=== PATIENT | female | born 1985 | race Caucasian/White ===

== ENCOUNTER 2023-03-27 10:23 | Emergency (ER) | payer OTHER, SELFPAY ==
[2023-03-27 10:41] VITALS: BP 129/65; PULSE 92; RESP 21; TEMP 36.9; O2SAT 98; BMI 21.0
[2023-03-27 10:43] VITALS: BP 127/85; PULSE 93; O2SAT 100
[2023-03-27 11:00] LABS: Appearance Urine Cloudy; Color Urine Dark Yellow; Glucose Urine UA Negative (Negative); Leukocyte Esterase Urine Negative (Negative); Nitrite Urine Negative (Negative); PH 5.5 (5.0-9.0); Specific Gravity - Urine >= 1.030 (1.005-1.025); UMIC TRIGGER UACC YES; Urine Blood Negative (Negative); Urine Ketones Trace mg/dL (Negative); Urine Protein 30 (1+) mg/dL (Neg-Trace)
[2023-03-27 11:03] LABS: Bacteria Urine 1+ (None Seen); RBC Urine 0-2 /HPF (0-2); WBC Urine 0-5 /HPF (0-5)
[2023-03-27 11:11] LABS: Amphetamine Screen Urine Not Detected (Not Detect); Barbiturates, Urine Not Detected (Not Detect); Benzodiazepines Screen Urine POSITIVE (Not Detect); Cannabinoid Screen Urine Not Detected (Not Detect); Cocaine Screen Urine POSITIVE (Not Detect); Fentanyl, urine POSITIVE (Not Detect); Opiate Screen Urine Not Detected (Not Detect); Phencyclidine Screen Urine Not Detected (Not Detect)
--- OUTSIDE RECORDS SUMMARY | 2023-03-27 11:28 | XMS_ITS | Continuity of Care Document ---
Author Name Unknown Organization [facility] ter Address [address] [place] [address]- Care Team Providers Care Delivery Engineer Name Role Phone Shivani Skaggs MD Primary Care Physician Encounter [facility] [place] [facility] R [id number] Date(s): 06/04/21 - 06/04/[address] [address]- Discharge Disposition: A-D/C Walkout Attending Physician: Not on Staff, Attending MD Admitting Physician: Not on Staff, Admitting MD Referring Physician: Not on Staff, Referring MD Allergies, Adverse Reactions, Alerts Substance Reaction Severity Status penicillins Active Keflex Rash Active
--- OUTSIDE RECORDS SUMMARY | 2023-03-27 11:28 | XMS_ITS | Continuity of Care Document ---
Author Name Unknown Organization [facility] ter Address [address] [place] [address]- Care Team Providers Care Riveter Hand Name Role Phone Shivani Skaggs MD Primary Care Physician Encounter [facility] [place] Date(s): 01/18/23 - 01/19/[address] [address]- Encounter Diagnosis Cocaine use(Final) - 01/18/23 Agitation(Final) - 01/18/23 Discharge Disposition: A-D/C Home Attending Physician: Graham Mckeon MD Admitting Physician: Graham Mckeon MD Referring Physician: Not on Staff, Referring MD Allergies, Adverse Reactions, Alerts Substance Reaction Severity Status penicillins Active Keflex Rash Active Immunizations Given and Recorded Vaccine Date Status Refusal Reason Measles/Mumps/Rubella Virus Vaccine 02/01/18 Recor ded Medications nicotine 2 mg oral transmucosal lozenge 0 Refills, Maintenance, 02/23/22 16:59:00 EDT, Partial fill upon patient request if the prescription is for a schedule II opioid drug. Start Date: 02/23/22 Status: Ordered Results Radiology Reports * Exam Date Time Procedure Performing Provider Status 01/18/23 3:49 PM Chest Portable Yazmin Sanchez; Sunny (V erified) Notes: (Chest Portable) Reason For Exam: Shortness of Breath RESULT: Chest Portable Chest Portable INDICATION: Shortness of breath COMPARISON: None. FINDINGS: LINES AND TUBES: None. LUNGS AND PLEURA: No evidence of confluent airspace opacity, lung consolidation or pulmonary vascular redistribution. Costophrenic sulci are maintained. No evidence of pneumothorax. HEART, MEDIASTINUM AND VENESSA: Cardiomediastinal silhouette is within normal limits in size. BONES AND SOFT TISSUES: Included skeleton is unremarkable as visualized IMPRESSION: No evidence of active cardiopulmonary process WSN: [id number] Ordering Physician: Pepper Kelsey By: Elias Gibbs Jr, MD Dictated Date/Time: 01/18/23 3:57 pm Reviewed By: Elias Gibbs Jr, MD Signed By: Elias Gibbs Jr, MD Signed Date/Time: 01/18/23 3:57 pm Transcribed By: CARLOS A Transcribed Date/Time: 01/18/23 3:56 pm Vital Signs Most recent to oldest [Reference Range]: 1 2 3 Oxygen Saturation [94-100 %] 100 % (01/19/23 1:21 PM) 100 % (01/19/23 6:01 AM) 100 % (01/19/23 5:30 AM) Pulse Rate [55-90 bpm] 79 bpm (01/19/23 1:21 PM) 87 bpm (01/19/23 6:01 AM) 77 bpm (01/19/23 5:30 AM) Blood Pressure [90-138/55-84 mm Hg] 124/76mm Hg (01/19/23 1:21 PM) 123/89mm Hg (01/19/23 6:01 AM) 124/85mm Hg (01/19/23 5:30 AM) Respiratory Rate [16-30 br/min] 16 br/min (01/19/23 1:21 PM) 15 br/min *L* (01/19/23 6:01 AM) 15 br/min *L* (01/19/23 3:44 AM) Temperature [96.8-100.4 DegF] 98.7 DegF (01/19/23 3:44 AM) 97.5 DegF (01/18/23 2:56 PM) Mode of Delivery (Oxygen) Room air (01/19/23 1:21 PM) Room air (01/19/23 6:01 AM) Room air (01/19/23 5:30 AM) Blood pressure sites Arm, left (01/19/23 1:21 PM) Arm, left (01/19/23 6:01 AM) Arm, left (01/19/23 5:30 AM) Temperature Route Axillary (01/19/23 3:44 AM) Axillary (01/18/23 2:56 PM) EKG study * Event Display: EKG Authored Date: Note * Luis Leigh DO: PERFORM Event Display: Patient Education Leaflets Authored Date: [id number] Cocaine and Crack Abuse ?? [id number] Cocaine and Crack Abuse Cocaine is typically snorted or injected into a vein. It can also be rubbed onto the gums.??Crack is made from cocaine. It can be smoked for a stronger effect. Cocaine causes a very powerful mental and physical dependence.?? Once you have a dependence, you'll do just about anything to get the drug and have the feeling it gives you. This can increase your risk for: ??? Overdose that may lead to ??? Loss of your job, your home, or your family ??? Accidental injuries to yourself or others while you are under the influence of the drug (in a car or at home) ??? Arrest, conviction, and care home sentence for possession of an illegal substance or for driving underthe influence Medically, cocaine can affect every organ in your body.??It can cause: ??? Chest pain, heart rhythm problem (arrhythmia), heart attack, and heart failure ??? Very high blood pressure ??? Severe headache, seizures, loss of consciousness, and stroke ??? Anxiety, psychosis, confusion, paranoia, and hallucinations ??? Nasal damage from snorting ??? Nausea, belly (abdominal) pain, and loss of appetite ??? Chronic bronchitis and shortness of breath from smoking ??? Higherrisk for HIV infection, hepatitis B or C, and heart infection. This is from IV use, risky sexual behavior while high, or both.? Kidney failure Home care These tips will help you care for yourself at home: ??? Admit you have a drug problem. Ask for help from your family and close friends. ??? See a mental health provider or counselor if you have depression or anxiety. ??? Join a self-help group for drug abuse. ??? Stay away from people who abuse drugs themselves or who tempt you to continue abusing the drug. ??? Eat a balanced diet and start a regular exercise program. If you continue to use IV cocaine, lower your risk of getting or spreading infection by: ??? Using only sterile equipment ??? Not reusing or sharing equipment ??? Cleaning your skin before injecting ?? Follow-up care Follow up with your healthcare provider, or as advised. Contact 1 of the resources below for help: ??? Substance Abuse and Mental Health Treatment Administration (SAMHSA) at www.samhsa.gov/find-treatment or 770-480-GFLW ??? [facility] [place] on Drug Abuse (ADRIAN) at www.drugabuse.gov ? National [place] on Alcoholism and Drug Dependence at www.ncadd.org ??? Narcotics Anonymous at www.na.org ?? Call 911 Call 911 if any of these occur: ??? Seizure ??? Hard time breathing or slow, irregular breathing ??? Chest pain ??? Sudden weakness on 1 side of your body or sudden trouble speaking ??? Very drowsy or trouble waking up ??? Fast heart rate ?? When to get medical advice Call your healthcare provider right away if any of the following occur: ??? Agitation, anxiety, or unable to sleep ??? Unintended weight loss. This means more than 10 to 15 pounds over 6 months without dieting. ??? Hallucination, severe depression, or thoughts of harming yourself or another ??? Fever of 100.4??F??(38??C) or higher, or as advised by your provider ??? Redness, pain, or swelling at an injection site ??? Loss of vision or decreased vision ?? Last Reviewed Date: 2022 ?? 4582-4171 [employer]. All rights reserved. This information is not intended as a substitute for professional medical care. Always follow your healthcare professional's instructions. ?? Portable XR Chest Views * BHSPowerscribe , CIS S: TRANSCRIBE Bernie Pickett MD, Elias P: VERIFY Event Display: Result: Authored Date: [id number] Chest Portable INDICATION: Shortness of breath COMPARISON: None. FINDINGS: LINES AND TUBES: None. LUNGS AND PLEURA: No evidence of confluent airspace opacity, lung consolidation or pulmonary vascular redistribution. Costophrenic sulci are maintained. No evidence of pneumothorax. HEART, MEDIASTINUM AND VENESSA: Cardiomediastinal silhouette is within normal limits in size. BONES AND SOFT TISSUES: Included skeleton is unremarkable as visualized IMPRESSION: No evidence of active cardiopulmonary process WSN: [id number] Ordering Physician: Pepper Kelsey Dictated By: Elias Gibbs Jr, MD Dictated Date/Time: 01/18/23 3:57 pm Reviewed By: Elias Gibbs Jr, MD Signed By: Elias Gibbs Jr, MD Signed Date/Time: 01/18/23 3:57 pm Transcribed By: CSJacquelyn Transcribed Date/Time: 01/18/23 3:56 pm Patient Care team information Care Team Personnel Name: Shivani Skaggs MD Position: [facility] Physician - Primary Care Member Role: PCP Address: Address: [address] [place] [address]- Name: *[facility], ED Attending Position: [facility] ED Attendings Patient Name: Lashonda Grant Position: [facility] ED RN W/OE and Tasks Member Role: Patient Care Provider Name: Chata Cronin Position: [facility] ED TA [facility] Member Role: Patient Care Provider Name: Graham Mckeon MD Position: [facility] Resident Member Role: ED Attending Physician Address: Address: [address] [place] [address] [place] [address]- Name: Muriel Steiner Position: [facility] ED TA [facility] Care Team Related Persons Name: MICHAEL BRIONES Address: home [address] [place] [address] Name: [employer] Address: home [address] [place], [place]
--- OUTSIDE RECORDS SUMMARY | 2023-03-27 11:28 | XMS_ITS | Continuity of Care Document ---
Author Name Unknown Organization [facility] Address [address] [place] [address]- Care Team Providers Care Associate Professor Of Art History Name Role Phone Shivani Skaggs MD Primary Care Physician Encounter [facility] [place] Date(s): 01/29/23 - 01/30/[address] [address]- Encounter Diagnosis Stimulant intoxication(Final) - 01/29/23 Agitation(Final) - 01/30/23 Inappropriate behavior(Final) - 01/30/23 Discharge Disposition: A-D/C Home Attending Physician: Vaibhav Sutton MD Admitting Physician: Vaibhav Sutton MD Referring Physician: Not on Staff, Referring [...] opioid drug. Start Date: 02/23/22 Status: Ordered Vital Signs Most recent to oldest [Reference Range]: 1 2 3 Height 167 cm (01/30/23 1:39 PM) 167 cm (01/30/23 11:38 AM) 167 cm (01/29/23 10:07 PM) Weight 57 kg (01/30/23 1:39 PM) 57 kg (01/30/23 11:38 AM) 57 kg (01/29/23 10:07 PM) Oxygen Saturation [94-100 %] 100 % (01/30/23 1:39 PM) 100 % (01/30/23 11:38 AM) 99 % (01/30/23 5:45 AM) Pulse Rate [55-90 bpm] 95 bpm *H* (01/30/23 1:39 PM) 62 bpm (01/30/23 11:38 AM) 78 bpm (01/30/23 5:45 AM) Body Mass Index [18.5-24.99 kg/m2] 20.44 kg/m2 (01/30/23 1:39 PM) 20.44 kg/m2 (01/30/23 11:38 AM) 20.44 kg/m2 (01/29/23 10:05 PM) Blood Pressure [90-138/55-84 mm Hg] 133/103mm Hg (01/30/23 1:39 PM) 120/80mm Hg (01/30/23 11:38 AM) 139/84mm Hg *H* (01/29/23 10:05 PM) Respiratory Rate [16-30 br/min] 18 br/min (01/30/23 1:39 PM) 18 br/min (01/30/23 11:38 AM) 16 br/min (01/30/23 5:45 AM) Temperature [96.8-100.4 DegF] 98 DegF (01/30/23 1:39 PM) 98.5 DegF (01/30/23 11:38 AM) 97.8 DegF (01/29/23 10:05 PM) Mode of Delivery (Oxygen) Room air (01/30/23 1:39 PM) Room air (01/30/23 11:38 AM) Room air (01/30/23 12:46 AM) Blood pressure sites Arm, right (01/30/23 1:39 PM) Arm, right (01/30/23 11:38 AM) Arm, left (01/29/23 10:05 PM) Temperature Route Temporal (01/30/23 1:39 PM) Temporal (01/30/23 11:38 AM) Oral (01/29/23 10:05 PM) Dry Weight 57 kg (01/30/23 1:39 PM) 57 kg (01/30/23 11:38 AM) 57 kg (01/29/23 10:07 PM) Weight Obtained Via Patient/family state d (01/29/23 10:05 PM) Dry Weight Obtained Via Patient/family s tated (01/29/23 10:05 PM) Note * Mari Sutton MDh: PERFORM Event Display: Patient Education Leaflets Authored Date: [id number] Cocaine and Crack Abuse ?? [id number] Cocaine and Crack Abuse Cocaine is typically [...] or at home) ??? Arrest, conviction, and longterm sentence for possession of an illegal substance [...] Health Treatment Administration (SAMHSA) at www.samhsa.gov/find-treatment or 792-921-IDBZ ??? [facility] [place] on Drug Abuse (ADRIAN) at www.drugabuse.gov ? National [place] on Alcoholism and Drug Dependence at www.ncadd.org [...] vision ?? Last Reviewed Date: 2022 ?? 9942-7925 [employer]. All rights reserved. This information is not intended as a substitute for professional medical care. Always follow your healthcare professional's instructions. ?? Patient Care team information Care Team Personnel Name: Shivani Skaggs MD Position: [facility] Physician - Primary Care Member Role: PCP Address: Address: [address] [place] [address]- [place] Name: Emilie Sanchez RN Position: [facility] ED RN W/OE and Tasks Member Role: Patient Care Provider Name: Vaibhav Sutton MD Position: [facility] ED Medicine MD Member Role: Admitting Physician Address: Address: [address] [place] [address]- Care Team Related Persons Name: MICHAEL BRIONES Address: home [address] [place] [address] Name: [employer] Address: home [address] [facility] [place] [address]
--- OUTSIDE RECORDS SUMMARY | 2023-03-27 11:28 | XMS_ITS | Continuity of Care Document ---
Author Name Unknown Organization [facility] ter Address [address] [place] [address]- Care Team Providers Care Manager Customer Service Name Role Phone Shivani Skaggs MD Primary Care Physician [phone] Encounter [facility] [place] Date(s): 05/15/22 - 05/16/[address] [address]- Discharge Disposition: A-D/C Home Attending Physician: Alfonso Syed MD Admitting Physician: Alfonso Syed MD Referring Physician: Not on Staff, Referring MD Allergies, Adverse Reactions, Alerts Substance Reaction Severity Status penicillins Active Keflex Rash Active Medications nicotine 2 mg oral transmucosal lozenge 0 Refills, Maintenance, 02/23/22 16:59:00 EDT, Partial fill upon patient request if the prescription is for a schedule II opioid drug. Start Date: 02/23/22 Status: Ordered Vital Signs Most recent to oldest [Reference Range]: 1 2 3 Oxygen Saturation [94-100 %] 100 % (05/16/22 1:40 PM) 100 % (05/16/22 12:30 PM) 98 % (05/16/22 9:38 AM) Pulse Rate [55-90 bpm] 76 bpm (05/16/22 1:40 PM) 86 bpm (05/16/22 9:38 AM) 77 bpm (05/16/22 6:04 AM) Blood Pressure [90-138/55-84 mm Hg] 112/58mm Hg (05/16/22 1:40 PM) 113/55mm Hg (05/16/22 12:30 PM) 124/77mm Hg (05/16/22 9:38 AM) Respiratory Rate [16-30 br/min] 20 br/min (05/16/22 1:40 PM) 16 br/min (05/16/22 12:30 PM) 18 br/min (05/16/22 9:38 AM) Temperature [96.8-100.4 DegF] 98.8 DegF (05/16/22 12:30 PM) 98.8 DegF (05/16/22 9:38 AM) 98.3 DegF (05/16/22 6:04 AM) Liters per Minute 0 L/min (05/16/22 9:38 AM) 1 L/min (05/16/22 6:04 AM) 1 L/min (05/16/22 4:20 AM) Mode of Delivery (Oxygen) Room air (05/16/22 1:40 PM) Room air (05/16/22 12:30 PM) Room air (05/16/22 9:38 AM) Blood pressure sites Arm, right (05/16/22 12:30 PM) Arm, right (05/16/22 6:04 AM) Arm, right (05/16/22 4:20 AM) Temperature Route Oral (05/16/22 12:30 PM) Axillary (05/16/22 6:04 AM) Care Team Personnel Name: Shivani Skaggs MD Address: [address] [place] [address]
--- OUTSIDE RECORDS SUMMARY | 2023-03-27 11:28 | XMS_ITS | Continuity of Care Document ---
Author Name Unknown Organization [facility] Address [address] [place] [address]- Care Team Providers Care Nurse College Name Role Phone Shivani Skaggs MD Primary Care Physician En[place] [facility] [place](s): 01/30/23 - 01/31/[address] [address]- Encounter Diagnosis Polysubstance abuse(Final) - 01/31/23 Somnolence(Final) - 01/31/23 Depression with suicidal ideation(Final) - 01/31/23 Discharge Disposition: A-D/C Home Attending Physician: Leroy Silva MD Admitting Physician: Leroy Silva MD Referring Physician: Not on Staff, Referring [...] recent to oldest [Reference Range]: 1 2 Height 167 cm (01/30/23 4:48 PM) 167 cm (01/30/23 4:45 PM) Weight 62 kg (01/30/23 4:48 PM) 57 kg (01/30/23 4:45 PM) Oxygen Saturation [94-100 %] 98 % (01/31/23 12:00 AM) 100 % (01/30/23 4:48 PM) Pulse Rate [55-90 bpm] 66 bpm (01/31/23 12:00 AM) 67 bpm (01/30/23 4:48 PM) Body Mass Index [18.5-24.99 kg/m2] 22.23 kg/m2 (01/30/23 4:48 PM) Blood Pressure [90-138/55-84 mm Hg] 95/6 7mm Hg (01/31/23 12:00 AM) 98/60mm Hg (01/30/23 4:48 PM) Respiratory Rate [16-30 br/min] 16 br/mi n (01/31/23 12:00 AM) 16 br/min (01/30/23 4:48 PM) Temperature [96.8-100.4 DegF] 97.0 DegF (01/31/23 12:00 AM) 98.4 DegF (01/30/23 4:48 PM) Mode of Delivery (Oxygen) Room air (01/31/23 12:00 AM) Room air (01/30/23 4:48 PM) Blood pressure sites Arm, right (01/31/23 12:00 AM) Arm, right (01/30/23 4:48 PM) Temperature Route Oral (01/31/23 12:00 AM) Oral (01/30/23 4:48 PM) Dry Weight 57 kg (01/30/23 4:45 PM) Patient Care team information Care Team Personnel Name: Shivani Skaggs MD Position: [facility] Physician - Primary Care Member Role: PCP Address: Address: [address] [place] [address]- Name: Leroy Silva MD Position: [facility] ED Medicine MD Member Role: Admitting Physician Address: Address: [address] [place] [address] [place] [address]- Name: Tamika Leon RN Position: [facility] ED RN W/OE and Tasks Member Role: Patient Care Provider Care Team Related Persons Name: MICHAEL BRIONES Address: [address] [place] [address] Name: [employer] Address: [address] [place] [address]
--- OUTSIDE RECORDS SUMMARY | 2023-03-27 11:28 | XMS_ITS | Continuity of Care Document ---
Author Name Unknown Organization [facility] ter Address [address] [place] [address]- Care Team Providers Care Plate Embosser Name Role Phone Shivani Skaggs MD Primary Care Physician Encounter [facility] Date(s): 03/10/23 - 03/10/[address] [address]- Discharge Disposition: A-D/C Home Attending Physician: Malini Mariscal MD Admitting Physician: Malini Mariscal MD Referring Physician: Not on Staff, Referring [...] 3 Oxygen Saturation [94-100 %] 100 % (03/10/23 7:13 PM) 100 % (03/10/23 3:23 PM) 100 % (03/10/23 1:28 PM) Pulse Rate [55-90 bpm] 62 bpm (03/10/23 7:13 PM) 66 bpm (03/10/23 3:23 PM) 62 bpm (03/10/23 1:28 PM) Blood Pressure [90-138/55-84 mm Hg] 113/67mm Hg (03/10/23 7:13 PM) 121/89mm Hg (03/10/23 3:23 PM) 113/64mm Hg (03/10/23 1:28 PM) Respiratory Rate [16-30 br/min] 18 br/min (03/10/23 7:13 PM) 18 br/min (03/10/23 3:23 PM) 18 br/min (03/10/23 1:28 PM) Mode of Delivery (Oxygen) Room air (03/10/23 7:13 PM) Room air (03/10/23 3:23 PM) Room air (03/10/23 1:28 PM) Blood pressure sites Arm, left (03/10/23 8:52 AM) Arm, left (03/10/23 6:35 AM) Arm, left (03/10/23 5:48 AM) Note * Doug Lamb MD: PERFORM Event Display: Patient Education Leaflets Authored Date: [id number] Cocaine and Crack Abuse ?? [id number] Cocaine and Crack Abuse Cocaine is typically [...] or at home) ??? Arrest, conviction, and shelter sentence for possession of an illegal substance [...] Health Treatment Administration (SAMHSA) at www.samhsa.gov/find-treatment or 838-491-KNIC ??? [facility] [place] on Drug Abuse (ADRIAN) at www.drugabuse.gov ? National [place] on Alcoholism and Drug Dependence at www.ncadd.org [...] vision ?? Last Reviewed Date: 2022 ?? 3799-2831 [employer]. All rights reserved. This information is not intended as a substitute for professional medical care. Always follow your healthcare professional's instructions. ?? Patient Care team information Care Team Personnel Name: Shivani Skaggs MD Position: [facility] Physician - Primary Care Member Role: PCP Address: Address: [address] [place] [address]- [place] Name: Doug Lamb MD Position: [facility] Resident Member Role: ED Resident Address: Address: [address] [place] [address]- Name: Malini Mariscal MD Position: [facility] ED Medicine MD Member Role: Admitting Physician Address: Address: [address] [place] [address]- Name: Malini Sawyer RN Position: [facility] ED RN W/OE and Tasks Member Role: Patient Care Provider Name: Violet Chacon Position: [facility] ED TA [facility] Member Role: Manpower Development Specialist Manager Care Team Related Persons Name: MICHAEL BRIONES Address: [address] [place] [address] Name: [employer] Address: [address] [place] [address]
--- OUTSIDE RECORDS SUMMARY | 2023-03-27 11:28 | XMS_ITS | Continuity of Care Document ---
Author Name Unknown Organization [facility] ter Address [address] [place] [address]- Care Team Providers Care Wood Room Supervisor Name Role Phone Shivani Skaggs MD Primary Care Physician [phone] [place] [facility] [place](s): 04/19/21 - 04/19/[address] [address]- Encounter Diagnosis Cocaine use(Final) - 04/19/21 Discharge Disposition: A-D/C AMA Attending Physician: Therese Monteiro MD Admitting Physician: Therese Monteiro MD Referring Physician: Not on Staff, Referring MD Allergies, Adverse Reactions, Alerts Substance Reaction Severity Status penicillins Active Keflex Rash Active Vital Signs Most recent to oldest [Reference Range]: 1 2 Oxygen Saturation [94-100 %] 99 % (04/19/21 1:15 PM) 100 % (04/19/21 12:39 PM) Pulse Rate [55-90 bpm] 92 bpm *H* (04/19/21 1:15 PM) 100 bpm *H* (04/19/21 12:39 PM) Blood Pressure [90-138/55-84 mm Hg] 157/ 107mm Hg *H* (04/19/21 1:15 PM) Respiratory Rate [16-30 br/min] 22 br/mi n (04/19/21 1:15 PM) Mode of Delivery (Oxygen) Room air (04/19/21 1:15 PM) Room air (04/19/21 12:39 PM)
--- OUTSIDE RECORDS SUMMARY | 2023-03-27 11:28 | XMS_ITS | Continuity of Care Document ---
Author Name Unknown Organization [facility] ter Address [address] [place] [address]- Care Team Providers Care Plate Painter Apprentice Name Role Phone Shivani Skaggs MD Primary Care Physician Encounter [facility] [place] Date(s): 01/04/23 - 01/04/[address] [address]- Discharge Disposition: A-D/C Home Attending Physician: Sherrell Kebede DO Admitting Physician: Sherrell Kebede DO Referring Physician: Not on Staff, Referring MD [...] 1 2 3 Oxygen Saturation [94-100 %] 99 % (01/04/23 8:22 PM) 99 % (01/04/23 4:16 PM) 99 % (01/04/23 7:33 AM) Pulse Rate [55-90 bpm] 91 bpm *H* (01/04/23 8:22 PM) 77 bpm (01/04/23 4:16 PM) 90 bpm (01/04/23 7:33 AM) Blood Pressure [90-138/55-84 mm Hg] 128/61mm Hg (01/04/23 8:22 PM) 128/70mm Hg (01/04/23 4:16 PM) 120/75mm Hg (01/04/23 7:33 AM) Respiratory Rate [16-30 br/min] 18 br/min (01/04/23 8:22 PM) 18 br/min (01/04/23 4:16 PM) 18 br/min (01/04/23 7:33 AM) Temperature [96.8-100.4 DegF] 98.1 DegF (01/04/23 8:22 PM) 98.4 DegF (01/04/23 4:17 AM) Mode of Delivery (Oxygen) Room air (01/04/23 8:22 PM) Room air (01/04/23 4:16 PM) Room air (01/04/23 7:33 AM) Blood pressure sites Arm, left (01/04/23 8:22 PM) Arm, left (01/04/23 4:16 PM) Temperature Route Oral (01/04/23 8:22 PM) Axillary (01/04/23 4:17 AM) Note * Gene Ernandez MD: PERFORM Event Display: Patient Education Leaflets Authored Date: Drug Abuse ?? [id number] Drug Abuse Use and abuse of drugs or medicines may lead to addiction or dependence. You may hear drug abuse oraddiction called substance use disorder (MARIAH). Examples of illegal drugs include amphetamines (alsoknown as speed or crank), methamphetamines (meth), cocaine, heroin, bath salts, and hallucinogens (such as MDMA, ecstasy, PCP, mescaline, and LSD). Xylazine is a sedative and pain reliever approved only for animals. It's not approved or safe for people. It's known by the street name tranq. Xylazine has been found in street drugs, especially heroin and fentanyl. It has been linked to overdoses and . Severe side effects from xylazine include slow heart beat and breathing, low blood pressure, skin sores, and coma. In some states, marijuana is an illegal drug. Medicines include prescription medicines, sedatives, and sleeping pills. Once addiction or dependence happens, you are at greater risk for the problems below. Social and personal problems ??? Craving for the drug and not being able to stop using even though you think you want to stop (psychological addiction) ??? Drug withdrawal symptoms if you stop takingthe drug (physical dependence) ??? Loss of friends and family ??? School or work problems ??? Arrest, conviction, and assisted sentence for possession of an illegal substance or for driving under the infl uence ?? Health problems ??? Stroke, heart attack, heart failure, and kidney failure ??? Accidental injuriesto yourself or others while you are under the influence of a drug (in a car or at home) ??? HIV infection. This is a much greater risk if you use IV drugs. ??? Skin infections ??? Other sexually transmitted infections (STIs), such as herpes, chlamydia, and gonorrhea ??? Severe and fatal infection of the heart valves if you use IV drugs ??? Hepatitis B or C ??? Dementia, mood disorders, persistenthallucinations (particularly with hallucinogens) ??? Dental problems from methamphetamine abuse ??? from overdose ?? Home care The following suggestions can help you care for yourself at home: ??? Admit you have a drug problem. Ask for help from your family and close friends. ??? Seek professional help. This could be one-on-one therapy or counseling. There are also outpatient, inpatient, and residential drug treatment programs. ??? Join a self-help group for drug abuse. ??? Stay away from friends who abuse drugs or temptyou to continue abusing drugs. ??? Eat a balanced diet and start a regular exercise program. ?? Follow-up care Follow up with your healthcare provider, or as advised. Contact 1 of the resources below for help: ??? Substance Abuse and Mental Health Services Administration (SAMHSA) at www.samhsa.gov/findtreatment ??? National [place] on Alcoholism and Drug Dependence at www.ncadd.org ??? Narcotics Anonymous at www.na.org ?? Call 911 Call 911 right away if any of these occur: ??? Seizure ??? Hard time breathing or slow, irregular breathing ??? Chest pain ??? Sudden weakness on 1 side of your body or sudden trouble speaking ??? Very drowsy or trouble waking up ??? Fainting or loss of consciousness ??? Fast heart rate ??? Very slow heart rate ?? When to get medical care Call your healthcare provider if any of these occur: ??? Agitation, anxiety, or unable to sleep ???Unintended weight loss. This means more than 10 to 15 pounds over 3 months. ??? Fever of 100.4??F (38??C) or higher, or as advised by your provider ??? Shortness of breath ??? Cough with colored sputum ??? Redness, swelling, or tenderness at an injection site ??? You think counseling or drug rehabilitation services are needed to prevent additional drug use ?? Last Reviewed Date: 2022 ?? 0696-1246 [employer]. All rights reserved. This information is not intended as a substitute for professional medical care. Always follow your healthcare professional's instructions. ?? Patient Care team information Care Team Personnel Name: Shivani Skaggs MD Position: [facility] Primary Care Physician Member Role: PCP Address: Address: [address] [place] [address]- Name: Sherrell Kebede DO Position: [facility] ED Medicine MD Member Role: Admitting Physician Address: Address: [address] [place] [address]- Name: Taylor Quinn Position: [facility] ED [facility] Member Role: Patient Care Provider Name: Av Johnson RN Position: [facility] ED RN W/OE and Tasks Member Role: Patient Care Provider Name: Gene Ernandez MD Position: [facility] Resident Member Role: ED Resident Address: Address: [address] [place] [address]- Care Team Related Persons Name: MICHAEL BRIONES Address: home [address] [place] [address] Name: SANTA MART Address: [address] [place] [address]
--- OUTSIDE RECORDS SUMMARY | 2023-03-27 11:28 | XMS_ITS | Continuity of Care Document ---
Author Name Unknown Organization [facility] ter Address [address] [place] [address]- Care Team Providers Care Account Leader Name Role Phone Shivani Skaggs MD Primary Care Physician [phone] [facility] [place] Date(s): 03/15/23 - 03/16/[address] [address]- Encounter Diagnosis Cocaine use(Final) - 03/15/23 Discharge Disposition: A-D/C Fpc, Intermediate, or [facility] Fac Attending Physician: Graham Mckeon MD Admitting Physician: [...] 1 2 3 Oxygen Saturation [94-100 %] 98 % (03/16/23 5:36 AM) 98 % (03/16/23 12:43 AM) 99 % (03/15/23 8:00 PM) Pulse Rate [55-90 bpm] 65 bpm (03/16/23 5:36 AM) 76 bpm (03/16/23 12:43 AM) 73 bpm (03/15/23 9:32 PM) Blood Pressure [90-138/55-84 mm Hg] 109/75mm Hg (03/16/23 5:36 AM) 107/56mm Hg (03/16/23 12:43 AM) 127/94mm Hg (03/15/23 9:32 PM) Respiratory Rate [16-30 br/min] 20 br/min (03/16/23 5:36 AM) 18 br/min (03/16/23 12:43 AM) 16 br/min (03/15/23 9:32 PM) Mode of Delivery (Oxygen) Room air (03/16/23 5:36 AM) Room air (03/16/23 12:43 AM) Room air (03/15/23 8:00 PM) Note * Emely Troy MD: PERFORM Event Display: Patient Education Leaflets Authored Date: [id number] Cocaine and Crack Abuse ?? [id number] Cocaine and Crack Abuse Cocaine is typically [...] Health Treatment Administration (SAMHSA) at www.samhsa.gov/find-treatment or 277-504-VZIS ??? [facility] [place] on Drug Abuse (ADRIAN) at www.drugabuse.gov ? National [place] on Alcoholism and Drug Dependence at www.ncadd.org [...] vision ?? Last Reviewed Date: 2022 ?? 2904-2482 [employer]. All rights reserved. This information is not intended as a substitute for professional medical care. Always follow your healthcare professional's instructions. ?? Patient Care team information Care Team Personnel Name: Shivani Skaggs MD Position: [facility] Physician - Primary Care Member Role: PCP Address: Address: [address] [place] [address]- [place] Name: *[facility], ED Attending Position: [facility] ED Attendings Patient Name: Delia Starkey Position: [facility] ED [facility] Name: Graham Mckeon MD Position: [facility] Resident Member Role: Admitting Physician Address: Address: [address] [facility] [place] [address]- [place] Care Team Related Persons Name: MICHAEL BRIONES Address: [address] [place] [address] Name: SANTA MART Address: [address] [place] [address]
--- OUTSIDE RECORDS SUMMARY | 2023-03-27 11:28 | XMS_ITS | Continuity of Care Document ---
Author Name Unknown Organization [facility] ter Address [address] [place] [address]- Care Team Providers Care Salon Professional Name Role Phone Shivani Skaggs MD Primary Care Physician Encounter [facility] [place] Date(s): 09/07/19 - 09/07/[address] [address]- [facility] Encounter Diagnosis Acute UTI(Final) - 09/07/19 Discharge Disposition: A-D/C Home Attending Physician: Ramiro Herr MD Admitting Physician: Ramiro Herr MD Referring Physician: Not on Staff, Referring MD Allergies, Adverse Reactions, Alerts Substance Reaction Severity Status penicillins Active Keflex Rash Active Medications Macrobid macrocrystals-monohydrate 100 mg oral capsule 1 capsule = 100 mg, By Mouth, 2 times a day, for 7 days, # 14 capsule, 0 Refills, Acute 09/14/19 18:12:00 EST, 09/07/19 18:12:00 EST, Capsule Start Date: 09/07/19 Stop Date: 09/14/19 Status: Ordered Vital Signs Most recent to oldest [Reference Range]: 1 2 Oxygen Saturation [94-100 %] 100 % (09/07/19 5:03 PM) 100 % (09/07/19 4:56 PM) Pulse Rate [55-90 bpm] 77 bpm (09/07/19 5:03 PM) 85 bpm (09/07/19 4:56 PM) Blood Pressure [90-138/55-84 mm Hg] 124/ 73mm Hg (09/07/19 5:03 PM) Respiratory Rate [16-30 br/min] 20 br/mi n (09/07/19 5:03 PM) 17 br/min (09/07/19 4:56 PM) Temperature [96.8-100.4 DegF] 98.4 DegF (09/07/19 5:03 PM) Mode of Delivery (Oxygen) Room air (09/07/19 5:03 PM) Blood pressure sites Arm, right (09/07/19 5:03 PM) Temperature Route Oral (09/07/19 5:03 PM) Dry Weight 53 kg (09/07/19 5:03 PM)
--- OUTSIDE RECORDS SUMMARY | 2023-03-27 11:28 | XMS_ITS | Continuity of Care Document ---
Author Name Unknown Organization [facility] ter Address [address] [place] [address]- Care Team Providers Care Director Of Planning Name Role Phone Shivani Skaggs MD Primary Care Physician [phone] Encounter [facility] [place] Date(s): 01/17/22 - 01/18/[address] [address]- Encounter Diagnosis Cocaine intoxication(Final) - 01/17/22 Discharge Disposition: A-D/C Home Attending Physician: Filomena Bradshaw MD Admitting Physician: Filomena Bradshaw MD Referring Physician: Not on Staff, Referring MD Allergies, Adverse Reactions, Alerts Substance Reaction Severity Status penicillins Active Keflex Rash Active Vital Signs Most recent to oldest [Reference Range]: 1 2 3 Oxygen Saturation [94-100 %] 99 % (01/18/22 6:34 AM) 100 % (01/17/22 10:11 PM) 96 % (01/17/22 6:24 PM) Pulse Rate [55-90 bpm] 75 bpm (01/18/22 6:34 AM) 64 bpm (01/17/22 10:11 PM) 72 bpm (01/17/22 6:24 PM) Blood Pressure [90-138/55-84 mm Hg] 117/78mm Hg (01/18/22 6:34 AM) 112/77mm Hg (01/17/22 10:11 PM) 103/57mm Hg (01/17/22 6:24 PM) Respiratory Rate [16-30 br/min] 17 br/min (01/18/22 6:34 AM) 16 br/min (01/17/22 10:11 PM) 18 br/min (01/17/22 6:24 PM) Temperature [96.8-100.4 DegF] 98.3 DegF (01/18/22 6:34 AM) 97.9 DegF (01/17/22 10:11 PM) 97.3 DegF (01/17/22 12:20 PM) Mode of Delivery (Oxygen) Room air (01/18/22 6:34 AM) Room air (01/17/22 10:11 PM) Room air (01/17/22 6:24 PM) Blood pressure sites Arm, right (01/18/22 6:34 AM) Arm, right (01/17/22 10:11 PM) Arm, right (01/17/22 6:24 PM) Temperature Route Oral (01/18/22 6:34 AM) Oral (01/17/22 10:11 PM) Axillary (01/17/22 12:20 PM)
--- OUTSIDE RECORDS SUMMARY | 2023-03-27 11:28 | XMS_ITS | Continuity of Care Document ---
Author Name Unknown Organization [facility] ter Address [address] [place] [address]- Care Team Providers Care Business Development Specialist Name Role Phone Shivani Skaggs MD Primary Care Physician [phone] [place] [facility] [place] - 01/25/[address] [address]- Discharge Disposition: A-D/C Home Attending Physician: Clark Bueno MD Admitting Physician: Clark Bueno MD Referring Physician: Not on Staff, Referring [...] 3 Oxygen Saturation [94-100 %] 100 % (01/25/23 5:28 AM) 97 % (01/25/23 4:43 AM) 98 % (01/24/23 8:12 PM) Pulse Rate [55-90 bpm] 72 bpm (01/25/23 5:28 AM) 89 bpm (01/25/23 4:43 AM) 70 bpm (01/24/23 8:12 PM) Blood Pressure [90-138/55-84 mm Hg] 136/99mm Hg (01/25/23 5:28 AM) 136/89mm Hg (01/25/23 4:43 AM) 144/83mm Hg *H* (01/24/23 8:12 PM) Respiratory Rate [16-30 br/min] 17 br/min (01/25/23 5:28 AM) 16 br/min (01/25/23 4:43 AM) 16 br/min (01/24/23 8:12 PM) Temperature [96.8-100.4 DegF] 97.8 DegF (01/25/23 5:28 AM) 98.0 DegF (01/25/23 4:43 AM) 97.9 DegF (01/24/23 8:12 PM) Mode of Delivery (Oxygen) Room air (01/25/23 5:28 AM) Room air (01/25/23 4:43 AM) Room air (01/24/23 8:12 PM) Blood pressure sites Arm, left (01/25/23 5:28 AM) Arm, right (01/25/23 4:43 AM) Arm, right (01/24/23 8:12 PM) Temperature Route Oral (01/25/23 5:28 AM) Oral (01/25/23 4:43 AM) Axillary (01/24/23 8:12 PM) Patient Care team information Care Team Personnel Name: Shivani Skaggs MD Position: [facility] Physician - Primary Care Member Role: PCP Address: Address: [address] [place] [address]- Name: *[facility], ED Attending Position: [facility] ED Attendings Patient Name: Anna Mcqueen RN Position: [facility] ED RN W/OE and Tasks Member Role: Patient Care Provider Name: Clark Bueno MD Position: [facility] Resident Member Role: Admitting Physician Address: Address: [address] [place] [address] [place] [address]- Name: Nathalia Hannah Position: [facility] ED [facility] Name: Sammi Smith Position: [facility] ED [facility] Member Role: Manager Of Financial Reporting Care Team Related Persons Name: MICHAEL BRIONES Address: [address] [place] [address] Name: SANTA MART Address: [address] [place] [address]
--- OUTSIDE RECORDS SUMMARY | 2023-03-27 11:28 | XMS_ITS | Continuity of Care Document ---
Author Name Unknown Organization [facility] ter Address [address] [place] [address]- Care Team Providers Care Food Service Counter Clerk Name Role Phone Shivani Skaggs MD Primary Care Physician Encounter [facility] [place] Date(s): 03/05/23 - 03/05/[address] [address]- Encounter Diagnosis Cocaine intoxication(Final) - 03/05/23 Discharge Disposition: A-D/C Home Attending Physician: Nereyda Lala DO Admitting Physician: Nereyda Lala DO Referring Physician: Not on Staff, Referring [...] oldest [Reference Range]: 1 2 3 Height 168 cm (03/05/23 10:33 PM) 168 cm (03/05/23 6:45 PM) 168 cm (03/05/23 3:34 PM) Weight 64 kg (03/05/23 10:33 PM) 64 kg (03/05/23 6:45 PM) 64 kg (03/05/23 3:34 PM) Oxygen Saturation [94-100 %] 100 % (03/05/23 10:33 PM) 98 % (03/05/23 6:45 PM) 100 % (03/05/23 3:34 PM) Pulse Rate [55-90 bpm] 87 bpm (03/05/23 10:33 PM) 68 bpm (03/05/23 6:45 PM) 56 bpm (03/05/23 3:34 PM) Body Mass Index [18.5-24.99 kg/m2] 22.68 kg/m2 (03/05/23 10:33 PM) 22.68 kg/m2 (03/05/23 6:45 PM) 22.68 kg/m2 (03/05/23 3:34 PM) Blood Pressure [90-138/55-84 mm Hg] 122/88mm Hg (03/05/23 10:33 PM) 119/78mm Hg (03/05/23 6:45 PM) 113/63mm Hg (03/05/23 3:34 PM) Respiratory Rate [16-30 br/min] 18 br/min (03/05/23 10:33 PM) 16 br/min (03/05/23 6:45 PM) 16 br/min (03/05/23 3:34 PM) Temperature [96.8-100.4 DegF] 98.7 DegF (03/05/23 10:33 PM) 98.5 DegF (03/05/23 6:45 PM) 97.7 DegF (03/05/23 3:34 PM) Mode of Delivery (Oxygen) Room air (03/05/23 10:33 PM) Room air (03/05/23 6:45 PM) Room air (03/05/23 11:49 AM) Blood pressure sites Arm, left (03/05/23 10:33 PM) Arm, left (03/05/23 6:45 PM) Arm, left (03/05/23 3:34 PM) Temperature Route Oral (03/05/23 10:33 PM) Oral (03/05/23 6:45 PM) Oral (03/05/23 3:34 PM) Dry Weight 64 kg (03/05/23 10:33 PM) 64 kg (03/05/23 6:45 PM) 64 kg (03/05/23 3:34 PM) Note * Violet Wynn MD: PERFORM Event Display: Patient Education Leaflets Authored Date: [id number] Cocaine and Crack Abuse ?? [id number] Cocaine and Crack Abuse Cocaine is typically [...] or at home) ??? Arrest, conviction, and snf sentence for possession of an illegal substance [...] Health Treatment Administration (SAMHSA) at www.samhsa.gov/find-treatment or 198-660-ECIL ??? Kay ional [place] on Drug Abuse (ADRIAN) at www.drugabuse.gov ? National [place] on Alcoholism and Drug Dependence at www.ncadd.org [...] vision ?? Last Reviewed Date: 2022 ?? 3672-8065 [employer]. All rights reserved. This information is not intended as a substitute for professional medical care. Always follow your healthcare professional's instructions. ?? Patient Care team information Care Team Personnel Name: Shivani Skaggs MD Position: [facility] Physician - Primary Care Member Role: PCP Address: Address: [address] [place] [address]- Name: Nereyda Lala DO Position: [facility] Resident Member Role: Admitting Physician Address: Address: [address] [place] [address] Name: Viviana Polanco RN Position: [facility] ED RN W/OE and Tasks Member Role: Patient Care Provider Name: Violet Wynn MD Position: [facility] Resident Member Role: ED Resident Address: Address: [address] [place] [address] Name: Margo Stacy Position: [facility] ED [facility] Care Team Related Persons Name: MICHAEL BRIONES Address: [address] [address] Name: SANTA MART Address: [address] [place] [address]
--- NOTE | 2023-03-27 13:07 | ED_ITS ---
HPI - General Adult General Chief complaint: ETOH/Substance Use Stated complaint: Requesting detox per EMS Time Seen by Provider: 03/27/23 12:23 Source: patient Mode of arrival: ambulatory Limitations: no limitations History of Present Illness HPI narrative: 37-year-old female came in by ambulance after using cocaine. Patient declined using any other substances or drinking alcohol, patient has been using crack cocaine for the past 2 months now is seeking detox. Patient noted to be restless in the emergency department no SI or HI or hallucination. Patient declined any other symptoms. Related Data Allergies Allergy/AdvReac Type Severity Reaction Status Date / Time cephalexin [From KEFLEX] Allergy Intermediate HIVES Verified 09/22/21 14:20 Review of Systems Review of Systems: All other systems are reviewed and are negative Constitutional: Reports as per HPI and Reports no additional constitutional complaints Eyes: Reports as per HPI and Reports no additional eye complaints Reports system reviewed and no additional complaints, except as documented Cardiovascular: Reports as per HPI and Reports no additional cardiovascular complaints Respiratory: Reports as per HPI and Reports no additional respiratory complaints Gastrointestinal: Reports as per HPI and Reports no additional gastrointestinal complaints Genitourinary: Reports no additional female genitourinary complaints Musculoskeletal: Reports no additional musculoskeletal complaints Skin/Breast: Reports system reviewed and no additional complaints, except as docu Psychiatric: Reports no additional psychiatric complaints Endocrine: Reports no additional endocrine complaints Hematologic/Lymphatic: Reports no additional hematologic/lymphatic complaints Allergic/Immunologic: Reports no additional allergic/immunologic complaints Reports system reviewed and no additional complaints, except as documented and Reports Abnormal speech present PMFSH Past Medical History Surgical History Hx of section Family History Family History Father Diabetes mellitus Mother HTN (hypertension) Asthma Fibromyalgia Sister Myocardial infarction Social History Social History Alcohol intake: current Alcohol intake frequency: a few times a month Smoked in Last 30 Days: Yes Use of substances other than those prescribed or required for medical reasons: Yes Substance Use Type: Crack/Cocaine Advance Directives: No Advance Directives Information Provided: Yes Patient : No Physical Exam ED Vital Signs: Vital Signs - 24 hr 03/27/23 10:41 03/27/23 16:04 03/28/23 02:07 Temperature 98.4 F 98.5 F Pulse Rate 92 103 H 69 Respiratory Rate 21 H 16 18 Blood Pressure 129/65 110/72 Pulse Oximetry 98 99 100 Oxygen Delivery Method Room Air Room Air Room Air 03/28/23 02:11 03/28/23 05:31 Temperature 98.5 F Pulse Rate 69 76 Respiratory Rate 18 18 Blood Pressure Pulse Oximetry 100 100 Oxygen Delivery Method Room Air Room Air BMI result Body Mass Index 21.0 Vital signs have been reviewed as appeared to be correct. Blood pressure normal. Heart rate normal. Respiration rate normal. Temperature normal. Oxygen saturation normal. Appearance: Alert. Oriented X3. No acute distress. Head: Normal external exam. Normocephalic. Atraumatic. No Caraballo signs noted. N o raccoon eyes noted Eyes: PERRLA. EOMI. Conjunctiva and sclera normal. Eyelids normal. ENT: TM's Normal. Pharynx normal. Uvula midline. Moist mucous membranes. No trismus noted. No drooling noted. No muffled voice noted. Neck: Normal inspection. Neck supple. FROM. No adenopathy. Thyroid Normal. No meningeal signs. No neck mass noted. CVS: Normal heart rate and rhythm. Heart sound normal. No murmurs noted. Pulses normal throughout. Respiratory: No respiratory distress. Painless inspiration. Breath sounds normal. No wheezes/rales/rhonchi noted. Chest nontender. No accessory muscle usage noted or decreased air movement noted. Abdomen: Soft and nontender. Bowel sounds normal in all 4 quadrants. No distention noted. No organomegaly noted. No visible injury noted. Back: No CVA tenderness. Full range of motion noted. Skin: Skin warm and dry. Normal skin color. Normal skin turgor. No rashes/lesions/lacerations noted. Extremities: No lower extremity edema. Extremities exhibit normal range of motion. Extremities nontender. Neuro: Oriented X 3. Cranial nerve exam: II-XII are grossly intact No motor deficit. No sensory deficit. Reflexes normal.. Medical Decision Making Differential Diagnosis Differential Diagnoses: The differential diagnosis associated with the presentation includes (Substance abuse, SI.) Lab Data Labs: Lab Results 03/27/23 03/27/23 Range/Units 10:53 10:53 Urine Color Dark Yellow Urine Appearance Cloudy Urine pH 5.5 (5.0-9.0) Ur Specific [place] >= 1.030 H (1.005-1.025) Urine Protein 30 (1+) H (Neg-Trace) mg/dL Urine Glucose (UA) Negative (Negative) mg/dL Urine Ketones Trace (Negative) mg/dL Urine Blood Negative (Negative) Urine Nitrite Negative (Negative) Ur Leukocyte Esterase Negative (Negative) Urine RBC 0-2 (0-2) /HPF Urine WBC 0-5 (0-5) /HPF Ur Squamous Epith Cells 11-20 (0-2) /HPF Urine Bacteria 1+ (None Seen) Hyaline Casts 3-5 (0-2) /LPF Urine Opiates Screen Not Detected (Not Detect) Urine Fentanyl Screen POSITIVE H (Not Detect) Ur Barbiturates Screen Not Detected (Not Detect) Ur Phencyclidine Scrn Not Detected (Not Detect) Ur Amphetamines Screen Not Detected (Not Detect) U Benzodiazepines Scrn POSITIVE H (Not Detect) Urine Cocaine Screen POSITIVE H (Not Detect) U Marijuana (THC) Screen Not Detected (Not Detect) Discharge Plan Discharge Clinical Impression: Polysubstance abuse Patient Disposition: Elopement Discharge Date/Time: 03/28/23 09:16
--- NOTE | 2023-03-27 13:25 | MHC.RECOVSUP ---
Addendum entered by Jose Carlos Ortiz 03/27/23 18:08: Met with pt who informed she smokes about $400 of crack a day and was not aware it had Fentanyl in it. Pt has never OD and was last in ATS earlier this year with [facility]. Pt is not on MAT and is not interested in starting but would like ATS at this time. ATS bed search in process for [facility] to follow up. Original Note: Attempted to meet with pt in [facility] who is here for MARIAH, However at this time pt is still in a heavily altered state and not able to appropriately provide information or be able to complete a phone screen. Pt needs more time to regulate, will return at a later time.
--- NOTE | 2023-03-27 15:52 | PC.NURSE ---
pt periodically awake, walking around. disorganized movements of arms, legs. pt restless. ? unintentional movements. pt a&o x4. seeking detox after using crack following being 6 months sober.
[2023-03-27 16:04] VITALS: BP 110/72; PULSE 103; RESP 16; O2SAT 99
--- NOTE | 2023-03-27 20:42 | PC.NURSE ---
pt sleeping at this time, respirations even and unlabored, skin pwd, no apparent distress. Awaiting recovery
--- NOTE | 2023-03-27 20:54 | MHC.RECOVSUP ---
? Reason for consult:ETOH o? Current location:[facility]? o? Identified substance use concern:? -? Support ? Intervention: o? Community resources provided ? Plan: o? Follow up tomorrow? ? Additional information:KIANA attempted to speak with this client about treatment options but she wasn't coherent, she was flailing and kicking in the bed while moaning and grunting. I told her I was leaving recovery resources with her belongings, and that I would write a note informing the recovery team to follow up with her.
[2023-03-28 02:07] VITALS: PULSE 69; RESP 18; TEMP 36.9; O2SAT 100
[2023-03-28 02:11] VITALS: PULSE 69; RESP 18; TEMP 36.9; O2SAT 100
--- NOTE | 2023-03-28 02:57 | PC.NURSE ---
Pt awaiting recovery team in the morning for re-evaluation. Pt currently sleeping at this time, respirations even and unlabored, no apparent distress at this time
[2023-03-28 05:31] VITALS: PULSE 76; RESP 18; O2SAT 100
--- NOTE | 2023-03-28 07:04 | PC.NURSE ---
Alert and oriented, Resting calmly in bed, when asked if patient had any pain patient started thrashing in bed. Denies pain or discomfort. Denies SI.
--- NOTE | 2023-03-28 09:15 | PC.NURSE ---
Patient stating her boyfriend is outside and is leaving, provider aware.
== END 2023-03-28 09:16 | disposition left against medical advice (07) ==
PROVIDERS: Emergency Provider Emergency Medicine; PCP Internal Medicine
DX: F11.10 Opioid abuse, uncomplicated (principal); F14.10 Cocaine abuse, uncomplicated; Z79.899 Other long term (current) drug therapy; Z71.51 Drug abuse counseling and surveillance of drug abuser
CPT/HCPCS: 80307; 81001; 99285

== ENCOUNTER 2023-05-12 10:33 | Emergency (ER) | payer OTHER, SELFPAY ==
--- NOTE | ~2023-05-12 | XR_ITS ---
EXAMINATION: XR CHEST CLINICAL INFORMATION: Chest pain COMPARISON: None available. TECHNIQUE: Frontal view of the chest was obtained. FINDINGS: No significant abnormality is noted involving the heart, lungs, mediastinum, bony thorax or soft tissues. XR/XR chest 1V IMPRESSION: Normal chest x-ray.
--- NOTE | 2023-05-12 10:34 | ECG_ITS ---
Test Reason : CP/SMOKED CRACK Blood Pressure : / mmHG Vent. Rate : 147 BPM Atrial Rate : 000 BPM P-R Int : 000 ms QRS Dur : 076 ms QT Int : 300 ms P-R-T Axes : 000 062 268 degrees QTc Int : 469 ms Atrial fibrillation with rapid ventricular response ST & T wave abnormality, consider inferior ischemia ST & T wave abnormality, consider anterolateral ischemia Abnormal ECG No previous ECGs available Referred By: Generic ED Physician Electronically Signed By:GHISLAINE CLEARY
[2023-05-12 10:38] VITALS: BP 148/90; PULSE 92; O2SAT 98
[2023-05-12 10:44] VITALS: BP 107/74; PULSE 101; RESP 20; TEMP 36.4; O2SAT 98; BMI 19.4
--- OUTSIDE RECORDS SUMMARY | 2023-05-12 11:02 | XMS_ITS | Continuity of Care Document ---
Author Name Unknown Organization [facility] ter Address [address] [place] [id number]- Care Team Providers Care Library Science Instructor Name Role Phone Shivani Skaggs MD Primary Care Physician [phone] Encounter [facility] Date(s): 03/29/23 - 03/30/[address] [address]- Encounter Diagnosis Agitation(Final) - 03/30/23 Discharge Disposition: A-D/C Home Attending Physician: Margret Snell MD Admitting Physician: Margret Snell MD Referring Physician: Not on Staff, Referring MD Allergies, Adverse Reactions, Alerts Substance Reaction Severity Status penicillins Active Keflex Rash Active Immunizations Given and Recorded Vaccine Date Status Refusal Reason Measles/Mumps/Rubella Virus Vaccine 02/01/18 Recor ded Vital Signs Most recent to oldest [Reference Range]: 1 2 3 Oxygen Saturation [94-100 %] 97 % (03/30/23 7:07 AM) 100 % (03/30/23 5:13 AM) 100 % (03/30/23 2:36 AM) Pulse Rate [55-90 bpm] 65 bpm (03/30/23 7:07 AM) 87 bpm (03/30/23 5:13 AM) 81 bpm (03/30/23 2:36 AM) Blood Pressure [90-138/55-84 mm Hg] 120/73mm Hg (03/30/23 7:07 AM) 116/74mm Hg (03/30/23 5:13 AM) 123/79mm Hg (03/30/23 2:36 AM) Respiratory Rate [16-30 br/min] 16 br/min (03/30/23 7:07 AM) 18 br/min (03/30/23 5:13 AM) 16 br/min (03/30/23 2:36 AM) Temperature [96.8-100.4 DegF] 98.1 DegF (03/30/23 7:07 AM) 98.3 DegF (03/30/23 5:13 AM) 97.6 DegF (03/30/23 2:36 AM) Mode of Delivery (Oxygen) Room air (03/30/23 7:07 AM) Room air (03/30/23 5:13 AM) Room air (03/30/23 2:36 AM) Blood pressure sites Arm, right (03/30/23 7:07 AM) Arm, right (03/30/23 5:13 AM) Arm, left (03/30/23 2:36 AM) Temperature Route Oral (03/30/23 7:07 AM) Oral (03/30/23 5:13 AM) Oral (03/30/23 2:36 AM) EKG study * Event Display: ECG 12-Lead Authored Date: Please click on pdf link to open report * Event Display: ECG 12-Lead Authored Date: Ventricular Rate: 65 BPM Atrial Rate: 65 BPM P-R Interval: 108 ms QRS Duration: 66 ms Q-T Interval: 448 ms QTC Calculation(Bazett): 465 ms P [place]: 84 degrees R [place]: 79 degrees T [place]: 78 degrees Sinus rhythm with short AR Possible Left atrial enlargement Anteroseptal infarct (cited on or before 30-MAR-2023) Abnormal ECG When compared with ECG of 30-MAY-2022 05:07, No significant change was found Confirmed by OLIVER GLEZ ([id number]) on 03/30/2023 8:18:14 AM [place]: OLIVER GLEZ * Event Display: EKG Authored Date: Patient Care team information Care Team Personnel Name: Shivani Skaggs MD Position: [facility] Physician - Primary Care Member Role: PCP Address: Address: [address] [place] [id number]- Name: Margret Snell MD Position: [facility] ED Medicine MD Member Role: Admitting Physician Address: Address: [address] [place] [address] [place] [address]- [place] Name: Milana Sosa MD Position: [facility] Resident Member Role: ED Resident Address: Address: [address] [place] [address] Emergency Medicine [place], [place] [address] Name: Sri Warner RN Position: [facility] ED RN W/OE and Tasks Member Role: Patient Care Provider Name: Long Campbell Position: [facility] ED TA [facility] Care Team Related Persons Name: MICHAEL BRIONES Address: [address] [place] [address] Name: SANTA MART Address: [address] [place] [address]
--- OUTSIDE RECORDS SUMMARY | 2023-05-12 11:02 | XMS_ITS | Continuity of Care Document ---
Author Name Unknown Organization [facility] ter Address [address] [place] [address]- Care Team Providers Care Configurator Name Role Phone Shivani Skaggs MD Primary Care Physician [phone] Encounter [facility] Date(s): 04/07/23 - 04/07/[address] [address]- Encounter Diagnosis Cocaine use(Final) - 04/07/23 Restless(Final) - 04/07/23 Discharge Disposition: A-D/C Home Attending Physician: Markell Feliz MD Admitting Physician: Markell Feliz MD Referring Physician: Not on Staff, Referring MD Allergies, Adverse Reactions, Alerts Substance Reaction Severity Status penicillins Active Keflex Rash Active Immunizations Given and Recorded Vaccine Date Status Refusal Reason Measles/Mumps/Rubella Virus Vaccine 02/01/18 Recor ded Medications No Known Medications Vital Signs Most recent to oldest [Reference Range]: 1 2 3 Oxygen Saturation [94-100 %] 99 % (04/07/23 3:50 PM) 99 % (04/07/23 12:03 PM) 100 % (04/07/23 10:25 AM) Pulse Rate [55-90 bpm] 68 bpm (04/07/23 3:50 PM) 75 bpm (04/07/23 10:25 AM) 52 bpm *L* (04/07/23 6:15 AM) Blood Pressure [90-138/55-84 mm Hg] 100/67mm Hg (04/07/23 3:50 PM) 110/63mm Hg (04/07/23 10:25 AM) 128/82mm Hg (04/07/23 6:15 AM) Respiratory Rate [16-30 br/min] 20 br/min (04/07/23 3:50 PM) 19 br/min (04/07/23 12:03 PM) 19 br/min (04/07/23 10:25 AM) Temperature [96.8-100.4 DegF] 98.0 DegF (04/07/23 3:50 PM) 98.1 DegF (04/07/23 12:57 AM) Mode of Delivery (Oxygen) Room air (04/07/23 3:50 PM) Room air (04/07/23 12:03 PM) Room air (04/07/23 10:25 AM) Blood pressure sites Arm, left (04/07/23 3:50 PM) Arm, left (04/07/23 10:25 AM) Arm, right (04/07/23 12:57 AM) Temperature Route Oral (04/07/23 3:50 PM) Oral (04/07/23 12:57 AM) EKG study * Event Display: ECG 12-Lead Authored Date: Please click on pdf link to open report * Event Display: ECG 12-Lead Authored Date: Ventricular Rate: 77 BPM Atrial Rate: 77 BPM P-R Interval: 112 ms QRS Duration: 68 ms Q-T Interval: 412 ms QTC Calculation(Bazett): 466 ms P [place]: 83 degrees R [place]: 74 degrees T [place]: 74 degrees Normal sinus rhythm Anteroseptal infarct (cited on or before 30-MAR-2023) Abnormal ECG When compared with ECG of 30-MAR-2023 02:31, No significant change was found Confirmed by HORTENCIA CERON ([id number]) on 04/07/2023 11:24:47 AM [place]: HORTENCIA CERON Patient Care team information Care Team Personnel Name: Shivani Skaggs MD Position: [facility] Physician - Primary Care Member Role: PCP Address: Address: [address] [place] [address]- [place] Name: Donaldo Perez DO Position: [facility] Resident Member Role: ED Resident Address: Address: [address] [place] [address] [place] [address]- Name: Markell Feliz MD Position: [facility] ED Medicine MD Member Role: Admitting Physician Address: Address: [address] [place] [address]- Name: Rachel Jamison RN Position: [facility] ED RN W/OE and Tasks Member Role: Patient Care Provider Name: Elizabeth Giron RN Position: [facility] ED RN W/OE and Tasks Member Role: Patient Care Provider Name: Ever Nunn Position: [facility] ED TA [facility] Member Role: Patient Care Provider Care Team Related Persons Name: MICHAEL BRIONES Address: home [address] [place] [address] Name: BRITTNY SANTA Address: [address] [address]
--- NOTE | 2023-05-12 11:39 | ED_ITS ---
HPI - Altered Mental Status General Chief Complaint: ETOH/Substance Use Stated Complaint: SMOKING CRACK, CP Time Seen by Provider: 05/12/23 10:46 Source: patient Mode of arrival: EMS Limitations: altered mental status History of Present Illness HPI narrative: 37-year-old female who presents emergency department for evaluation of anxiety and agitation after using crack cocaine. The patient states that she has been smoking crack cocaine for 2 days. She states she has not slept in 2 days. EMS reports that the father was concerned the patient was hallucinating and rolling around on the floor therefore he called 911 and had the patient brought to emergency department. At the time my evaluation, patient is awake and alert, she has involuntary movements of her upper and lower extremities, she is unable to sit or lie on the stretcher secondary to her involuntary movements. She was oriented to person and place and she was able to recount the details of her crack cocaine use over the last 2 days and her inability to sleep over the past days. Related Data Allergies Allergy/AdvReac Type Severity Reaction Status Date / Time cephalexin [From KEFLEX] Allergy Intermediate HIVES Verified 05/12/23 10:47 Review of Systems 2 Review of Systems: Yes all other systems are reviewed and are negative [facility] Past Medical History [facility] Narrative: Past medical history: None. Surgical history: None. Social history: She smokes cigarettes. She denies alcohol use. She states she smokes crack cocaine and she has been smoking for 2 days nonstop with inability to sleep over the past 2 days. Surgical History Hx of section Family History Family History Father Diabetes mellitus Mother HTN (hypertension) Asthma Fibromyalgia Sister Myocardial infarction Social History Social History Alcohol intake: current Alcohol intake frequency: a few times a month Substance Use Type: Crack/Cocaine Advance Directives: No Physical Exam ED Vital Signs: Vital Signs - 24 hr 05/12/23 10:44 05/12/23 12:26 05/12/23 14:00 Temperature 97.5 F Pulse Rate 101 H 96 84 Respiratory Rate 20 16 18 Blood Pressure 107/74 109/66 107/69 Pulse Oximetry 98 94 97 Oxygen Delivery Method Room Air Room Air Nasal Cannula Oxygen Flow Rate 2 05/12/23 16:00 Temperature Pulse Rate 76 Respiratory Rate Blood Pressure 113/81 Pulse Oximetry 99 Oxygen Delivery Method Nasal Cannula Oxygen Flow Rate 2 BMI result Body Mass Index 19.4 Vital signs revealed an elevated heart rate of 101 otherwise were unremarkable. Exam: General: Patient is awake, oriented to person, she has uncontrolled involuntary movements of her upper and lower extremities, she is unable to sit on the stretcher Head: Normocephalic, atraumatic EENT: PERRL, Lids normal, sclera normal, conjunctiva normal, nose normal , ears normal, throat without erythema or exudates Neck: Supple, no adenopathy, trachea midline and nontender Lung: breath sounds symmetric, no wheezing, rales or rhonchi Chest: symmetric movement, nontender Heart: regular rate and rhythm, normal S1, S2 no murmurs or rubs Abdomen: soft, non-tender, nondistended, normal bowel sounds Back: no vertebral tenderness, no CVAT Extremities: no deformities, moves all extremities symmetrically Skin: no rashes, no lesion, normal color and warmth Neuro: Awake, alert, oriented, uncontrolled rhythmic movements of her upper and lower extremities Psych: cooperative Medications Administered Discontinued Medications Generic Name Dose Route Start Last Admin Trade Name Freq PRN Reason Stop Dose Admin Diphenhydramine HCl 50 mg 05/12/23 11:44 05/12/23 11:57 Diphenhydramine Hcl 50 Mg/Ml Vial IM 05/12/23 11:45 50 mg ONCE ONE Administration Haloperidol Lactate 10 mg 05/12/23 11:37 05/12/23 11:57 Haloperidol Lactate 5 Mg/Ml Vial IM 05/12/23 11:38 10 mg ONCE ONE Administration Sodium Chloride 1,000 mls @ 999 mls/hr 05/12/23 10:47 05/12/23 13:21 Ns IV 05/12/23 11:47 Infused .Q1H1M STA Infusion Lorazepam 2 mg 05/12/23 11:37 05/12/23 11:57 Lorazepam 2 Mg/Ml Vial IM 05/12/23 11:38 2 mg ONCE ONE Administration Medical Decision Making Medical Decision Making MDM Narrative: 37-year-old female who has a history of crack cocaine use disorder who states she has been smoking crack cocaine nonstop for 2 days and has not had any sleep over the past 2 days. Patient was sent to emergency department by ambulance for hallucinations and rolling around on the floor-this was noted by her father. At the time of my evaluation the patient is awake, oriented to person place, able to recount details of her drug use, she has uncontrolled rhythmic movements of her upper and lower extremities-patient's presentation consistent with an adverse reaction to using illicit street drugs. Patient may also be experiencing dystonia. Patient was ordered to get Haldol 10 mg IM, Ativan 2 mg IM Benadryl 50 mg IM 1436: Patient's laboratory evaluation did reveal an elevated CK but this is consistent with her agitation cocaine use-she is being treated with IV fluid. Patient had a good response to the above medications, she is resting comfortably. 1650: Start physician observation The patient is somnolent but arousable, this could be secondary to the eye medications that she received or may be secondary to lack of sleep from continual cocaine use. The patient will be placed in physician observation and will be observed on a cardiac and O2 saturation monitor until she is awake and alert and can be safely discharged. At the end of my shift, the patient's care was turned over to my colleague, Dr. Escoto Differential Diagnosis Differential Diagnoses: The differential diagnosis associated with the presentation includes Differential diagnosis includes was not limited to agitated delirium, adverse reaction to illicit drugs, dystonic reaction, electrolyte abnormalities, anemia Admission/Observation Consideration of admission/observation: Escalation of care including admission/observation considered Lab Data My independent interpretation patient's laboratory evaluation as follows: CBC was normal. Potassium is low 3.1. AST elevated 33. High sensitive troponin I was below detectable limits. CK elevated 941-most likely secondary to agitation and cocaine use. Ethanol level below detectable limits. 05/12/23 12:17 05/12/23 12:17 Labs: Lab Results 05/12/23 05/12/23 Range/Units 12:17 12:18 WBC 9.6 (4.8-10.8) X10*3/uL RBC 4.28 (4.20-5.50) X10*6/uL Hgb 13.0 (12.0-16.0) g/dl Hct 36.7 L (37.0-47.0) % MCV 85.7 (80.0-98.0) fL MCH 30.4 (27.0-33.0) pg MCHC 35.4 H (31.0-35.0) g/dl RDW 12.3 (11.0-16.0) % Plt Count 266 (160-400) X10*3/uL MPV 10.5 (9.4-12.3) fL Immature Gran % (Auto) 0.1 (0.0-0.4) % Neut % (Auto) 57.2 (45-73) % Lymph % (Auto) 32.0 (20-40) % [place] % (Auto) 9.7 (2-11) % Eos % (Auto) 0.6 (0-4) % Baso % (Auto) 0.4 (0-2) % Lymph # (Auto) 3.1 (1.2-4.9) X10*3/uL [place] # (Auto) 0.9 (0.1-1.2) X10*3/uL Eos # (Auto) 0.1 (0.0-0.4) X10*3/uL Baso # (Auto) 0.0 (0.0-0.2) X10*3/uL Abs Immat Gran (auto) 0.01 (0.00-0.03) X10*3/uL Absolute Neuts (auto) 5.5 (2.0-8.3) x10*3/uL Absolute Nucleated RBC 0.000 (0.0-0.012) X10*3/uL Nucleated RBC % (auto) 0.0 (0.0-0.2) /100WBC PT 13.8 H (11.1-13.3) SEC INR 1.1 (0.9-1.1) APTT 31.0 (26.0-36.4) SEC Sodium 139 (135-145) mmol/L Potassium 3.1 L (3.3-5.1) mmol/L Chloride 105 (96-108) mmol/L Carbon Dioxide 23 (22-29) mmol/L Anion Gap 14 (12-20) BUN 13 (9-16) mg/dL Creatinine 0.72 (0.5-1.4) mg/dL Estim Creat Clear Calc 92.7 Estimated GFR > 60 Random Glucose 105 (60-115) mg/dL Calcium 10.3 H (8.4-10.2) mg/dL Total Bilirubin 0.7 (0.0-1.0) mg/dL AST 33 H (5-31) U/L ALT 21 (0-31) U/L Alkaline Phosphatase 62 (39-117) U/L Total Creatine Kinase 941 H (26-140) U/L Troponin I High Sens < 2.7 (<3.5-17.0) ng/L Total Protein 7.5 (6.5-8.0) g/dL Albumin 4.5 (3.5-5.0) g/dL Lipase 16 (8-78) U/L Ethyl Alcohol < 10 mg/dL Radiology Impression Discussion of test interpretation with radiology: I have reviewed the radiologist's reading. Radiologist Impression: XR chest 1V IMPRESSION: Normal chest x-ray. Dictated By: Shakira Venegas MD Discharge Plan Discharge Clinical Impression: Cocaine use, Delirium Rhabdomyolysis Qualifiers: Rhabdomyolysis type: non-traumatic Qualified Code(s): M62.82 - Rhabdomyolysis Patient Disposition: Still a Patient
[2023-05-12] MEDS: Haloperidol Lactate 5 MG/ML VIAL 10 MG IM (11:57)
[2023-05-12] MEDS: LORazepam 2 MG/ML VIAL IM (11:57)
[2023-05-12] MEDS: diphenhydrAMINE HCL 50 MG/ML VIAL IM (11:57)
--- NOTE | 2023-05-12 12:01 | PC.NURSE ---
PT PLACED ON PEOPLESOFT DEVELOPER, CHANGED INTO GREEN CHAD, BELONGINGS INVENTORY DONE, LABELED AND PLACED IN [place]. PT REMOVED CARDIAC LEADS, WALKING BACK AND FORTH FROM [place] TO ROOM, APPEARS UNSTEADY, SAFETY ENSURED. PT REMOVED CHAD MULTIPLE TIMES AND WAS PUT BACK ON BY ED STAFF, CARDIAC LEADS PUT BACK ON. MED GIVEN ORDERED. WILL CONTINUE TO OBSERVE. IV NOT INSERTED AT THIS TIME AND NS NOT GIVEN YET D/T PT UNABLE TO SIT STILL.
[2023-05-12 12:22] LABS: MANUAL DIFF FLAG NO
[2023-05-12] MEDS: 0.9 % Sodium Chloride 1,000 ML 999 ML IV ×2 (12:24→17:07)
[2023-05-12 12:26] VITALS: BP 109/66; PULSE 96; RESP 16; O2SAT 94
[2023-05-12 12:26] LABS: Basophils Percent Auto 0.4 % (0-2); Eosinophils Absolute Auto 0.1 X10*3/uL (0.0-0.4); Eosinophils Percent Auto 0.6 % (0-4); Hematocrit 36.7 % (37.0-47.0); Imm Gran Abs Auto 0.01 X10*3/uL (0.00-0.03); Imm Gran Pct Auto 0.1 % (0.0-0.4); Lymphocytes Absolute Auto 3.1 X10*3/uL (1.2-4.9); Mean Corpuscular HGB Conc 35.4 g/dl (31.0-35.0); Mean Corpuscular Hemoglobin 30.4 pg (27.0-33.0); Mean Corpuscular Volume 85.7 fL (80.0-98.0); Mean Platelet Volume 10.5 fL (9.4-12.3); Monocytes Absolute Auto 0.9 X10*3/uL (0.1-1.2); Monocytes Percent Auto 9.7 % (2-11); Neutrophils Absolute Auto 5.5 x10*3/uL (2.0-8.3); Neutrophils Percent Auto 57.2 % (45-73); Platelet Count 266 X10*3/uL (160-400); Red Blood Count 4.28 X10*6/uL (4.20-5.50); Red Cell Distribution Width 12.3 % (11.0-16.0); White Blood Count 9.6 X10*3/uL (4.8-10.8)
[2023-05-12 12:36] LABS: INTERNATIONAL NORM RATIO 1.1 (0.9-1.1); Prothrombin Time 13.8 SEC (11.1-13.3)
--- NOTE | 2023-05-12 12:41 | PC.NURSE ---
20g iv inserted RAC, labs drawn, fluid started as ordered. pt sleeping at this time, pt placed on 2L n/c d/t O2 satting 83 -87% r/a while sleeping. currently satting 97-99% on 2L n/c. will continue to observe.
[2023-05-12 12:51] LABS: Alanine Aminotransferase 21 U/L (0-31); Albumin Level 4.5 g/dL (3.5-5.0); Alkaline Phosphatase 62 U/L (39-117); Anion Gap 14 (12-20); Aspartate Amino Transferase 33 U/L (5-31); Bilirubin Total 0.7 mg/dL (0.0-1.0); Blood Urea Nitrogen 13 mg/dL (9-16); Calcium 10.3 mg/dL (8.4-10.2); Carbon Dioxide 23 mmol/L (22-29); Chloride 105 mmol/L (96-108); Creatinine Clr Calc Pharmacy 92.7; Estimated Glomerular Filt Rate > 60; Ethanol < 10 mg/dL; Glucose Random 105 mg/dL (60-115); Lipase 16 U/L (8-78); Potassium 3.1 mmol/L (3.3-5.1); Sodium 139 mmol/L (135-145); Total Protein 7.5 g/dL (6.5-8.0)
[2023-05-12 12:57] LABS: Troponin-I High Sensitivity < 2.7 ng/L (<3.5-17.0)
[2023-05-12 14:00] VITALS: BP 107/69; PULSE 84; RESP 18; O2SAT 97
--- NOTE | 2023-05-12 14:03 | PC.NURSE ---
pt sleeping, she remains on 2L n/c satting 97-100%.
[2023-05-12 16:00] VITALS: BP 113/81; PULSE 76; O2SAT 99
--- NOTE | 2023-05-12 17:12 | PC.NURSE ---
NS started as ordered, pt sleeping, remains on 2L n/c satting 100%. vss.
--- NOTE | 2023-05-12 23:05 | PC.NURSE ---
Assumed care of patient at 1900. Patient appears to be sleeping, respirations even and unlabored, equal chest wall rising. Cardiac monitoring continues. Call coles within reach.
[2023-05-13 00:11] VITALS: BP 116/71; PULSE 80; RESP 15; O2SAT 96
--- NOTE | 2023-05-13 02:44 | PC.NURSE ---
Patient appears to be sleeping at this time. Even, unlabored respirations and chest wall raising noted. Cardiac monitoring continues NSR, o2 96%. Plan of care ongoing
[2023-05-13 03:53] VITALS: BP 114/71; PULSE 75; RESP 13; TEMP 36.7; O2SAT 97
--- NOTE | 2023-05-13 03:55 | PC.NURSE ---
PT requested water and something to eat. Pt drank water without issue. When this RN arrived to provide sandwich pt was sleeping again, eyes closed even respiration and chest wall rising. Vital signs stable. Call coles within reach.
[2023-05-13 06:29] VITALS: PULSE 78
--- NOTE | 2023-05-13 06:30 | PC.NURSE ---
PT arousable to verbal stimuli. While awake for a short period of time, pt noted that she did not get to speak with a doctor to request rehab for crack cocaine addiction. This RN provided her with a pamphlet for local organizations for support. PT fell back asleep. Even unlabored respirations noted.
[2023-05-13 06:34] VITALS: BP 118/72; PULSE 79; RESP 12; TEMP 36.9; O2SAT 98
[2023-05-13 07:31] VITALS: BP 108/67; PULSE 73; RESP 18; O2SAT 98
--- NOTE | 2023-05-13 07:32 | PC.NURSE ---
pt sleeping but arousable to name. pt reports being tired but does not know why . pt reports knowing she is at the hospital, knows the year and did not want to answer who the president is. pt lung sounds clear bilaterally. pt denies nausea, vomiting and chest pain. pt normal sinus on tele.
--- NOTE | 2023-05-13 08:45 | PC.NURSE ---
pt a&ox3. pt ambulated to bathroom with steady gait. pt requesting detox and rehab at this time. pt requesting food and gingerale. provider aware, care team order placed.
--- NOTE | 2023-05-13 09:24 | PC.NURSE ---
pt a&ox3. respirations even and unlabored. breakfast set up and pt awake and eating breakfast at bedside.
--- NOTE | 2023-05-13 10:19 | MHC.CARE ---
CARE Team provided Pt detox and substance use resources.
== END 2023-05-13 11:24 | disposition home or self-care (01) ==
PROVIDERS: Emergency Provider Emergency Medicine Emergency Medical Services
DX: F14.121 Cocaine abuse with intoxication with delirium (principal); M62.82 Rhabdomyolysis; R45.1 Restlessness and agitation; F41.9 Anxiety disorder, unspecified
CPT/HCPCS: 36415; 71045; 80053; 80307; 82550; 83690; 84484; 85025; 85610; 85730; 93005; 96360; 96361; 96372; 99285; J1200; J2060

== ENCOUNTER 2023-08-29 12:01 | Outpatient (REF) | payer MEDICAID, SELFPAY ==
[2023-08-31 08:48] LABS: C. trachomatis RNA TMA NOT DETECTED (NOT DETECTED); Candida glabrata RNA NOT DETECTED (NOT DETECTED); Candida species RNA NOT DETECTED (NOT DETECTED); N. gonorrhoeae RNA TMA NOT DETECTED (NOT DETECTED); Trichomonas vaginalis RNA NOT DETECTED (NOT DETECTED)
== END 2023-08-29 12:02 | disposition home or self-care (01) ==
LOC: HO.CHCLNP 12:01
PROVIDERS: Visit Provider Internal Medicine
DX: N89.8 Other specified noninflammatory disorders of vagina (principal)
CPT/HCPCS: 36415; 81513; 87481; 87491; 87591; 87661; 88142

== ENCOUNTER 2024-05-12 09:51 | Outpatient (REF) | payer MEDICAID, SELFPAY ==
[2024-05-12 15:21] LABS: MANUAL DIFF FLAG NO
[2024-05-12 15:28] LABS: Basophils Percent Auto 0.5 % (0-2); Eosinophils Absolute Auto 0.1 X10*3/uL (0.0-0.4); Eosinophils Percent Auto 0.9 % (0-4); Hematocrit 42.1 % (37.0-47.0); Hemoglobin 14.1 g/dl (12.0-16.0); Imm Gran Abs Auto 0.02 X10*3/uL (0.00-0.03); Imm Gran Pct Auto 0.3 % (0.0-0.4); Lymphocytes Absolute Auto 2.6 X10*3/uL (1.2-4.9); Lymphocytes Percent Auto 33.9 % (20-40); Mean Corpuscular HGB Conc 33.5 g/dl (31.0-35.0); Mean Corpuscular Hemoglobin 29.7 pg (27.0-33.0); Mean Corpuscular Volume 88.6 fL (80.0-98.0); Mean Platelet Volume 11.6 fL (9.4-12.3); Monocytes Absolute Auto 0.6 X10*3/uL (0.1-1.2); Monocytes Percent Auto 7.1 % (2-11); Neutrophils Absolute Auto 4.4 x10*3/uL (2.0-8.3); Neutrophils Percent Auto 57.3 % (45-73); Platelet Count 278 X10*3/uL (160-400); Red Blood Count 4.75 X10*6/uL (4.20-5.50); Red Cell Distribution Width 12.1 % (11.0-16.0); White Blood Count 7.7 X10*3/uL (4.8-10.8)
[2024-05-12 15:56] LABS: Alanine Aminotransferase 13 U/L (0-31); Albumin Level 4.3 g/dL (3.5-5.0); Alkaline Phosphatase 58 U/L (39-117); Anion Gap 12 (12-20); Aspartate Amino Transferase 18 U/L (5-31); Bilirubin Total 0.2 mg/dL (0.0-1.0); Blood Urea Nitrogen 10 mg/dL (9-16); Calcium 9.2 mg/dL (8.4-10.2); Carbon Dioxide 22 mmol/L (22-29); Chloride 110 mmol/L (96-108); Cholesterol 189 mg/dL (<200); Estimated Glomerular Filt Rate > 60; Glucose Random 88 mg/dL (60-115); HDL Cholesterol 46 mg/dL (>40); LDL Cholesterol Calculated 122 mg/dL (<100); Potassium 3.8 mmol/L (3.3-5.1); Sodium 140 mmol/L (135-145); Total Protein 7.5 g/dL (6.5-8.0); Triglycerides 105 mg/dL (<150)
[2024-05-12 16:13] LABS: TSH reflex Free T4 0.86 uIU/mL (0.32-4.0)
[2024-05-12 16:53] LABS: Bacterial Vaginosis PCR POSITIVE (Negative); Candida Group PCR NOT DETECTED (Not Detect); Candida glab krusei PCR NOT DETECTED (Not Detect); Trichomonas vaginalis PCR NOT DETECTED (Not Detect)
[2024-05-12 17:20] LABS: CT PCR NOT DETECTED (Not Detect.); NG PCR NOT DETECTED (Not Detect.)
[2024-05-13 08:20] LABS: HIV AB/AG Nonreactive (Nonreactive); HIV Num 1 0.04 S/CO (0.00-0.99); ~HepC Num1 0.12 S/CO (0.00-0.79); ~Hepatitis C Antibody Nonreactive (Nonreactive)
[2024-05-13 08:37] LABS: Syphilis Screen Nonreactive (Nonreactive)
== END 2024-05-12 09:52 | disposition home or self-care (01) ==
LOC: HO.CHCLDS 09:51
PROVIDERS: PCP Internal Medicine; Visit Provider Family Medicine
DX: N89.8 Other specified noninflammatory disorders of vagina (principal); Z11.3 Encounter for screening for infections with a predominantly sexual mode of transmission; Z82.49 Family history of ischemic heart disease and other diseases of the circulatory system
CPT/HCPCS: 0352U; 36415; 80053; 80061; 84443; 85025; 86780; 86803; 87389; 87491; 87591

== ENCOUNTER 2024-06-16 13:27 | Outpatient (REF) | payer MEDICAID, SELFPAY ==
[2024-06-19 06:07] LABS: TS Negative Control Passed; TS Panel A 0; TS Panel B 0; TS Positive Control Passed; TSpotTB Negative (Negative)
== END 2024-06-16 13:28 | disposition home or self-care (01) ==
LOC: HO.CHCLDS 13:27
PROVIDERS: Visit Provider Internal Medicine
DX: Z00.00 Encounter for general adult medical examination without abnormal findings (principal)
CPT/HCPCS: 36415; 86481

== ENCOUNTER 2024-07-24 13:29 | Outpatient (REF) | payer MEDICAID, SELFPAY ==
[2024-07-25 03:21] LABS: Syphilis Screen Nonreactive (Nonreactive)
[2024-07-25 03:41] LABS: HIV AB/AG Nonreactive (Nonreactive); HIV Num 1 0.06 S/CO (0.00-0.99); ~HepC Num1 0.12 S/CO (0.00-0.79); ~Hepatitis C Antibody Nonreactive (Nonreactive)
[2024-07-25 06:44] LABS: CT PCR NOT DETECTED (Not Detect.); NG PCR NOT DETECTED (Not Detect.)
[2024-07-25 08:38] LABS: Bacterial Vaginosis PCR POSITIVE (Negative); Candida Group PCR NOT DETECTED (Not Detect); Candida glab krusei PCR NOT DETECTED (Not Detect); Trichomonas vaginalis PCR NOT DETECTED (Not Detect)
== END 2024-07-24 13:30 | disposition home or self-care (01) ==
LOC: HO.CHCLDS 13:29
PROVIDERS: Visit Provider Pediatrics
DX: A64 Unspecified sexually transmitted disease (principal)
CPT/HCPCS: 0352U; 86780; 86803; 87389; 87491; 87591